=== PATIENT | male | born 1965 | race Caucasian/White ===

== ENCOUNTER 2019-02-05 18:43 | Emergency (ER) | payer OTHER ==
[2019-02-05] MEDS ORDERED: Sodium Chloride 0.9% 1,000 ML IV ONE (19:07)
[2019-02-05] MEDS ORDERED: Ibuprofen 600 MG Tab PO SCH (19:15)
--- NOTE | 2019-02-05 19:40 | EDM.PDOC ---
ED HPI GENERAL MEDICAL PROBLEM - General Chief Complaint: Respiratory Problem Stated Complaint: FEVER/COUGH/BODYACHES Time Seen by Provider: 02/05/19 19:10 Source of Information: Reports: Patient History Limitations: Reports: No Limitations - History of Present Illness INITIAL COMMENTS - FREE TEXT/NARRATIVE: 53 YO WM presents to ER complaining of couh/congestion x 3 weeks with fever/ chills and mild headache x 1 day. Pt reports [place] in town [place] trip and today he couldn't get warm, with fever/chills and body aches. Pt reports he took some Tylenol which improved his symptoms. Pt denies shortness of breath, dizziness or chest pain. Pt denies any history of pulmonary issues. Pt denies tobacco use. Pt denies any new sick contacts. Pt reports mild pain in his right ear when he's coughing. Duration: Week(s): (3) Location: Reports: Generalized Quality: Reports: Ache Severity: Mild Improves with: Reports: Medication Associated Symptoms: Reports: Cough, Fever/Chills, Headaches, Loss of Appetite, Malaise. 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 [No Known Home Meds] 02/05/19 [History] Past Medical History HEENT History: Reports: None Gastrointestinal History: Reports: None - Infectious Disease History Infectious Disease History: Reports: Other (See Below) Other Infectious Disease History: history of hepatits when young - Past Surgical History HEENT Surgical History: Reports: Other (See Below) Other HEENT Surgeries/Procedures: had jawed wired GI Surgical History: Reports: Appendectomy Social & Family History - Tobacco Use Smoking Status *Q: Never Smoker - Caffeine Use Caffeine Use: Reports: Coffee - Recreational Drug Use Recreational Drug Use: No ED ROS GENERAL - Review of Systems Review Of Systems: See Below Constitutional: Reports: Fever, Chills, Malaise, Decreased Appetite HEENT: Reports: Ear Pain, Rhinitis Respiratory: Reports: Cough Cardiovascular: Reports: No Symptoms Endocrine: Reports: No Symptoms GI/Abdominal: Reports: No Symptoms : Reports: No Symptoms Musculoskeletal: Reports: No Symptoms Skin: Reports: No Symptoms Neurological: Reports: No Symptoms Psychiatric: Reports: No Symptoms Hematologic/Lymphatic: Reports: No Symptoms Immunologic: Reports: No Symptoms ED EXAM, GENERAL - Physical Exam Exam: See Below Exam Limited By: No Limitations General Appearance: Alert, WD/WN, No Apparent Distress Ear Exam: Right Ear: Erythema, Bilateral Ear: TM normal Nose: Clear Rhinorrhea Throat/Mouth: Normal Inspection, Normal Lips, Normal Teeth, Normal Gums, Normal Oropharynx, Normal Voice, No Airway Compromise Head: Atraumatic, Normocephalic Neck: Normal Inspection, Supple, Non-Tender, Full Range of Motion Respiratory/Chest: No Respiratory Distress, Lungs Clear, Normal Breath Sounds, No Accessory Muscle Use, Chest Non-Tender Cardiovascular: Normal Peripheral Pulses, Regular Rate, Rhythm, No Edema, No Gallop, No JVD, No Murmur, No Rub GI/Abdominal: Normal Bowel Sounds, Soft, Non-Tender, No Organomegaly, No Distention, No Abnormal Bruit, No Mass Back Exam: Normal Inspection, Full Range of Motion, NT Extremities: Normal Inspection, Normal Range of Motion, Non-Tender, Normal Capillary Refill, No Pedal Edema Neurological: Alert, Oriented, CN II-XII Intact, Normal Cognition, Normal Gait, Normal Reflexes, No Motor/Sensory Deficits Psychiatric: Normal Affect, Normal Mood Skin Exam: Warm, Dry, Intact, Normal Color, No Rash Lymphatic: No Adenopathy Course - Vital Signs Last Recorded V/S: Last Vital Signs Temp 37.8 C 02/05/19 19:11 Pulse 92 02/05/19 18:45 Resp 18 02/05/19 18:45 BP 123/77 02/05/19 18:45 Pulse Ox 95 02/05/19 18:45 - Orders/Labs/Meds Orders: Active Orders 24 hr Category Date Time Status Chest 2V [CR] Stat Exams 02/05/19 19:08 Ordered Hydrocort/Neomycin/Polymyxin B [Cortisporin Otic Soln] Med 02/05/19 20:00 Ordered 10 ml EARRT Q4H Ibuprofen [Motrin] Med 02/05/19 19:15 Active 600 mg PO ONETIME Medication Orders Ibuprofen (Motrin) 600 mg PO ONETIME CHRIS Last Admin: 02/05/19 19:11 Dose: 600 mg Neomycin/Polymyxin/Hydrocortisone (Cortisporin Otic Soln) 10 ml EARRT Q4H CHRIS Labs: Laboratory Tests 02/05/19 02/05/19 Range/Units 18:35 18:35 WBC 4.94 L (5.00-10.00) 10^3/uL RBC 4.22 L (4.50-6.00) 10^6/uL Hgb 13.4 (13.0-17.0) g/dL Hct 37.9 L (40.0-52.0) % MCV 89.8 (82.0-92.0) fL MCH 31.8 H (27.0-31.0) pg MCHC 35.4 (32.0-36.0) g/dL RDW 12.4 (11.5-14.5) % Plt Count 159 (150-400) 10^3/uL MPV 12.2 H (7.4-10.4) fL Immature Gran % (Auto) 0.0 (0.0-5.0) % Neut % (Auto) 86.4 H (50.0-70.0) % Lymph % (Auto) 6.7 L (20.0-40.0) % [place] % (Auto) 6.3 (2.0-8.0) % Eos % (Auto) 0.2 L (1.0-3.0) % Baso % (Auto) 0.4 (0.0-1.0) % Immature Gran # (Auto) 0.00 (0.00-0.50) 10^3/uL Neut # (Auto) 4.27 (2.50-7.00) 10^3/uL Lymph # (Auto) 0.33 L (1.00-4.00) 10^3/uL [place] # (Auto) 0.31 (0.10-0.80) 10^3/uL Eos # (Auto) 0.01 L (0.10-0.30) 10^3/uL Baso # (Auto) 0.02 (0.00-0.10) 10^3/uL Sodium 134 L (136-145) mmol/L Potassium 3.3 (3.3-5.3) mmol/L Chloride 102 (98-115) mmol/L Carbon Dioxide 23.5 (21.0-32.0) mmol/L Anion Gap 11.8 (5-15) mmol/L BUN 16 (6-25) mg/dL Creatinine 1.22 H (0.51-1.17) mg/dL Est Cr Clr Drug Dosing 83.69 mL/min Estimated GFR (MDRD) > 60 mL/min Glucose 125 H (75 - 99) mg/dL Calcium 8.6 L (8.7-10.3) mg/dL Meds: Medications Generic Name Dose Route Start Last Admin Trade Name Freq PRN Reason Stop Dose Admin Ibuprofen 600 mg 02/05/19 19:15 02/05/19 19:11 Motrin PO 600 mg ONETIME CHRIS Administration Neomycin/Polymyxin/Hydrocortisone 10 ml 02/05/19 20:00 Cortisporin Otic Soln EARRT Q4H CHRIS Discontinued Medications Generic Name Dose Route Start Last Admin Trade Name Freq PRN Reason Stop Dose Admin Azithromycin 1,500 mg 02/05/19 19:48 Zithromax PO 02/05/19 19:49 ONETIME ONE Sodium Chloride 1,000 mls @ 999 mls/hr 02/05/19 19:07 02/05/19 19:12 Normal Saline IV 02/05/19 20:07 999 mls/hr .BOLUS ONE Administration - Radiology Interpretation Free Text/Narrative:: CXR-NAD Departure - Departure Time of Disposition: 20:10 Disposition: Home, Self-Care 01 Condition: Good Clinical Impression: Viral upper respiratory illness Acute bronchitis Qualifiers: Bronchitis organism: other organism Qualified Code(s): J20.8 - Acute bronchitis due to other specified organisms Otitis externa Qualifiers: Chronicity: acute Laterality: right - Discharge Information Instructions: Viral Respiratory Infection, [id number], Otitis Externa, Acute Bronchitis, Adult, [id number] Referrals: PCP,Not In Area [Primary Care Provider] - Forms: ED Department Discharge, ED Department Discharge Additional Instructions: 1. discharge home 2. zyrtec 10mg everyday for cough/congestion 3. z-matthew x 5 days 4. cortisporin otic solution 3 drops to affected ear every 4 hours x 7 days 5. tylenol 1g every 6 hours for fever/chills 6. motrin 600mg every 6 hours for fever/chills 7. follow up with PCP for further evaluation and treatment 8. return to ER for worsening symptoms - My Orders Last 24 Hours: My Active Orders 02/05/19 19:08 Chest 2V [CR] Stat 02/05/19 19:15 Ibuprofen [Motrin] 600 mg PO ONETIME 02/05/19 20:00 Hydrocort/Neomycin/Polymyxin B [Cortisporin Otic Soln] 10 ml EARRT Q4H - Assessment/Plan Last 24 Hours: My Active Orders 02/05/19 19:08 Chest 2V [CR] Stat 02/05/19 19:15 Ibuprofen [Motrin] 600 mg PO ONETIME 02/05/19 20:00 Hydrocort/Neomycin/Polymyxin B [Cortisporin Otic Soln] 10 ml EARRT Q4H Assessment:: 1. viral URI 2. acute bronchitis 3. right otitis externa Plan: 1. discharge home 2. zyrtec 10mg everyday for cough/congestion 3. z-matthew x 5 days 4. cortisporin otic solution 3 drops to affected ear every 4 hours x 7 days 5. tylenol 1g every 6 hours for fever/chills 6. motrin 600mg every 6 hours for fever/chills 7. follow up with PCP for further evaluation and treatment 8. return to ER for worsening symptoms
[2019-02-05 19:42] LABS: ANION GAP 11.8 mmol/L (5-15); CHLORIDE,CL 102 mmol/L (98-115); SODIUM,NA 134 mmol/L (136-145)
[2019-02-05] MEDS ORDERED: Azithromycin 250 MG Tab PO ONE (19:48)
[2019-02-05] MEDS ORDERED: Hydrocortisone/Neomycin/Polymyxin B Otic Soln 10 ML Bottle EARRT SCH (20:00)
--- NOTE | 2019-02-05 20:29 | CR ---
[id number] RAD/RAD Chest PA And Lateral EXAM: RAD Chest PA And Lateral INDICATION: COUGH, FEVER COMPARISON: None. DISCUSSION: Cardiomediastinal silhouette is normal in size and contour. No infiltrate, effusion, pneumothorax, or edema. IMPRESSION: No acute cardiopulmonary abnormality. Waylon Gomez DO 02/05/192027 Thank you for allowing us to participate in the care of your patient.
== END 2019-02-05 20:32 | disposition home or self-care (01) ==
LOC: KA.ED 18:43
DX: J39.9 Disease of upper respiratory tract, unspecified (principal); J20.9 Acute bronchitis, unspecified; H60.501 Unspecified acute noninfective otitis externa, right ear
CPT/HCPCS: 71046; 80048; 85025; 87804; 96360; 99283-25; A9270-GY; J7030